=== PATIENT | female | born 1980 | race Caucasian/White ===

== ENCOUNTER 2017-12-27 21:06 | Emergency (ER) | payer OTHER ==
[2017-12-27] MEDS: TETRACAINE 0.5% 4 ML OPH LEFT EYE (21:36)
[2017-12-27] MEDS: FLUORESCEIN STRIP LEFT EYE ×2 (21:36→21:39)
== END 2017-12-27 22:27 | disposition home or self-care (01) ==
LOC: FTE 21:06
DX: H10.9 Unspecified conjunctivitis (principal); E11.9 Type 2 diabetes mellitus without complications; Z79.84 Long term (current) use of oral hypoglycemic drugs
CPT/HCPCS: 99283; Z7502